=== PATIENT | female | born 1995 | race Caucasian/White ===

== ENCOUNTER 2021-07-20 14:40 | Emergency (ER) | payer SELFPAY ==
[2021-07-20 14:47] VITALS: BP 103/70; PULSE 79; TEMP 98.2; BMI 20.2
[2021-07-20] MEDS ORDERED: SODIUM CHLORIDE 0.9% 500 ML INFUS.BAG IV ONE (16:24)
[2021-07-20 17:41] LABS: BASO % 0.7 % (0-2.0); EOS % 2.9 % (0-4.5); HEMATOCRIT 36.4 % (32.4-45.2); HEMOGLOBIN 12.9 GM/dL (10.7-15.3); LYMPH % 25.1 % (8-40); MCH 32.5 pg (25.7-33.7); MCHC 35.3 g/dl (32.0-36.0); MEAN PLT VOLUME 8.7 fl (7.5-11.1); MONO % 7.5 % (3.8-10.2); NEUT % 63.8 % (42.8-82.8); PLATELET COUNT 222 10^3/uL (134-434); RBC 3.96 M/mm3 (3.60-5.2); RDW 12.7 % (11.6-15.6); WHITE BLOOD COUNT 10.6 K/mm3 (4.0-10.0)
[2021-07-20 17:43] LABS: HCG,QUALITATIVE URINE Positive
[2021-07-20 17:46] LABS: EPI CELLS 15 /uL (0-25.1); HYALINE CASTS 1 /uL (0-3.1); URINE APPEARANCE TURBID; URINE BACTERIA 284 /uL (0-1359); URINE BILIRUBIN NEGATIVE (NEGATIVE); URINE COLOR YELLOW; URINE GLUCOSE (UA) NEGATIVE (NEGATIVE); URINE KETONE NEGATIVE (NEGATIVE); URINE LEUK ESTERASE NEGATIVE (NEGATIVE); URINE NITRITE NEGATIVE (NEGATIVE); URINE PROTEIN TRACE (NEGATIVE); URINE RBC 14 /uL (0-23.9); URINE WBC 17 /uL (0-25.8)
[2021-07-20 18:31] LABS: CREATININE 0.7 mg/dL (0.55-1.3)
[2021-07-20 18:32] LABS: ALBUMIN 3.6 g/dl (3.4-5.0); CALCIUM 8.9 mg/dL (8.5-10.1); TOT PROT 7.1 g/dl (6.4-8.2)
[2021-07-20 18:33] LABS: BILIRUBIN,TOTAL 0.4 mg/dL (0.2-1)
== END 2021-07-20 20:37 | disposition home or self-care (01) ==
LOC: JER 14:40
DX: O20.8 Other hemorrhage in early pregnancy (principal)
CPT/HCPCS: 36415; 76775-TC; 76817-TC; 80053; 81003; 84702; 84703; 85025; 86850; 86900; 86901; 87086; 87186; 99284-25

== ENCOUNTER 2021-07-22 08:27 | Emergency (ER) | payer SELFPAY ==
[2021-07-22 08:34] VITALS: BP 103/68; PULSE 71; TEMP 98.3; BMI 21.9
== END 2021-07-22 11:49 | disposition home or self-care (01) ==
LOC: JERFT 08:27
DX: O03.9 Complete or unspecified spontaneous abortion without complication (principal); Z3A.00 Weeks of gestation of pregnancy not specified
CPT/HCPCS: 36415; 76817-TC; 84702; 99284-25

== ENCOUNTER 2021-11-01 15:35 | Emergency (ER) | payer OTHER ==
[2021-11-01 15:42] VITALS: BP 124/88; PULSE 72; TEMP 97.9; BMI 22.2
[2021-11-01 17:41] LABS: BASO % 0.5 % (0-2.0); EOS % 2.5 % (0-4.5); HEMATOCRIT 40.3 % (32.4-45.2); HEMOGLOBIN 13.6 GM/dL (10.7-15.3); LYMPH % 29.1 % (8-40); MCH 30.6 pg (25.7-33.7); MCHC 33.6 g/dl (32.0-36.0); MEAN PLT VOLUME 9.2 fl (7.5-11.1); MONO % 9.5 % (3.8-10.2); NEUT % 58.4 % (42.8-82.8); PLATELET COUNT 221 10^3/uL (134-434); RBC 4.43 M/mm3 (3.60-5.2); RDW 12.8 % (11.6-15.6); WHITE BLOOD COUNT 7.8 K/mm3 (4.0-10.0)
[2021-11-01 17:44] LABS: URINE APPEARANCE CLEAR; URINE BILIRUBIN NEGATIVE (NEGATIVE); URINE COLOR YELLOW; URINE GLUCOSE (UA) NEGATIVE (NEGATIVE); URINE KETONE NEGATIVE (NEGATIVE); URINE LEUK ESTERASE NEGATIVE (NEGATIVE); URINE NITRITE NEGATIVE (NEGATIVE); URINE PROTEIN NEGATIVE (NEGATIVE); URINE UROBILINOGEN 0.2 mg/dL (0.2-1.0)
[2021-11-01 17:47] LABS: HCG,QUALITATIVE URINE Negative
[2021-11-01 18:01] LABS: CHLORIDE 106 mmol/L (98-107); SODIUM 137 mmol/L (136-145)
[2021-11-01 18:02] LABS: CALCIUM 9.5 mg/dL (8.5-10.1)
[2021-11-01 18:03] LABS: ANION GAP 8 MMOL/L (8-16); CO2 23 mmol/L (21-32); GLUCOSE,RANDOM 92 mg/dL (74-106)
[2021-11-01 18:06] LABS: CREATININE 0.8 mg/dL (0.55-1.3)
== END 2021-11-01 20:40 | disposition home or self-care (01) ==
LOC: JER 15:35
DX: N83.02 Follicular cyst of left ovary (principal)
CPT/HCPCS: 36415; 76830-TC; 80048; 81003; 84702; 84703; 85025; 87086; 87491; 87591; 99284-25

== ENCOUNTER 2022-03-30 09:11 | Emergency (ER) | payer OTHER ==
[2022-03-30 09:18] VITALS: TEMP 98.4; BMI 25.0
[2022-03-30] MEDS ORDERED: SODIUM CHLORIDE 1,000 ML IV STA ×2 (09:52→11:47)
[2022-03-30] MEDS ORDERED: METOCLOPRAMIDE HCL INJECTION 10 MG/2 ML VIAL IVPUSH ONE (10:08)
[2022-03-30] MEDS ORDERED: METOCLOPRAMIDE HCL INJECTION 10 MG/2 ML VIAL ONE (10:09)
[2022-03-30 11:05] LABS: PH,URINE >= 9.0 (5.0-8.0); URINE APPEARANCE CLEAR; URINE BILIRUBIN NEGATIVE (NEGATIVE); URINE COLOR YELLOW; URINE GLUCOSE (UA) NEGATIVE (NEGATIVE); URINE KETONE NEGATIVE (NEGATIVE); URINE LEUK ESTERASE NEGATIVE (NEGATIVE); URINE NITRITE NEGATIVE (NEGATIVE); URINE PROTEIN TRACE (NEGATIVE); URINE UROBILINOGEN 0.2 mg/dL (0.2-1.0)
[2022-03-30 11:08] LABS: BASO % 0.1 % (0-2.0); EOS % 1.3 % (0-4.5); HEMATOCRIT 33.6 % (32.4-45.2); HEMOGLOBIN 11.6 GM/dL (10.7-15.3); LYMPH % 5.3 % (8-40); MCH 31.4 pg (25.7-33.7); MCHC 34.4 g/dl (32.0-36.0); MEAN CELL VOLUME 91.3 fl (80-96); MEAN PLT VOLUME 9.7 fl (7.5-11.1); MONO % 3.9 % (3.8-10.2); NEUT % 89.4 % (42.8-82.8); PLATELET COUNT 220 10^3/uL (134-434); RBC 3.68 M/mm3 (3.60-5.2); RDW 13.3 % (11.6-15.6); WHITE BLOOD COUNT 12.5 K/mm3 (4.0-10.0)
[2022-03-30 11:40] LABS: BLOOD UREA NITROGEN 8.9 mg/dL (7-18)
[2022-03-30 11:41] LABS: CALCIUM 8.5 mg/dL (8.5-10.1)
[2022-03-30 11:44] LABS: CREATININE 0.5 mg/dL (0.55-1.3)
[2022-03-30 11:46] LABS: BILIRUBIN,TOTAL 0.5 mg/dL (0.2-1); TOT PROT 6.3 g/dl (6.4-8.2)
[2022-03-30] MEDS ORDERED: ACETAMINOPHEN 1000 MG/100 ML BAG IVPB ONE (11:47)
[2022-03-30] MEDS ORDERED: ACETAMINOPHEN INJECTION 100 ML IVPB ONE (11:52)
[2022-03-30 14:36] VITALS: BP 100/68; PULSE 72; RESP 19
== END 2022-03-30 14:36 | disposition home or self-care (01) ==
LOC: JER 09:11
PROC: 3E033GC Introduction of Other Therapeutic Substance into Peripheral Vein, Percutaneous Approach (ICD-10-PCS; principal; 2022-03-30)
DX: A08.4 Viral intestinal infection, unspecified (principal)
CPT/HCPCS: 36415; 76705-TC; 80053; 81003; 83690; 84702; 84703; 85025; 87086; 99284-25

== ENCOUNTER 2022-05-24 11:53 | Emergency (ER) | payer OTHER ==
[2022-05-24 12:10] VITALS: BMI 28.3
[2022-05-24] MEDS ORDERED: ACETAMINOPHEN 325 MG TABLET (FP) PO ONE (12:59)
[2022-05-24] MEDS ORDERED: ACETAMINOPHEN 325 MG TABLET (FP) ONE (13:03)
[2022-05-24 14:43] VITALS: RESP 20; TEMP 97.8
[2022-05-24 16:33] VITALS: BP 106/60
[2022-05-24 16:34] VITALS: PULSE 73
== END 2022-05-24 17:15 | disposition home or self-care (01) ==
LOC: JER 11:53
DX: S09.90XA Unspecified injury of head, initial encounter (principal); W19.XXXA Unspecified fall, initial encounter; Y92.9 Unspecified place or not applicable
CPT/HCPCS: 99283-25

== ENCOUNTER 2022-08-26 08:35 | Inpatient (IN) | payer OTHER ==
[2022-08-26] MEDS ORDERED: DINOPROSTONE 10 MG VAGINAL SUPPOSITORY VG ONE (09:52)
[2022-08-26 09:57] VITALS: BMI 27.9
[2022-08-26] MEDS: ELECTROLYTE-148 SOLN 1,000 ML IV SCH ×2 (10:00→18:02)
[2022-08-26 10:24] LABS: BASO % 0.5 % (0-2.0); EOS % 0.7 % (0-4.5); HEMATOCRIT 35.8 % (32.4-45.2); HEMOGLOBIN 11.9 GM/dL (10.7-15.3); LYMPH % 14.4 % (8-40); MCH 30.4 pg (25.7-33.7); MCHC 33.1 g/dl (32.0-36.0); MEAN CELL VOLUME 91.8 fl (80-96); MEAN PLT VOLUME 10.4 fl (7.5-11.1); NEUT % 79.4 % (42.8-82.8); PLATELET COUNT 178 10^3/uL (134-434); RDW 14.3 % (11.6-15.6); WHITE BLOOD COUNT 9.8 K/mm3 (4.0-10.0)
[2022-08-26 10:30] LABS: INR 0.96 (0.83-1.09)
[2022-08-26 10:32] LABS: ACTIVATED PTT 32.8 SECONDS (25.2-36.5)
[2022-08-26 10:42] LABS: CALCIUM 8.5 mg/dL (8.5-10.1)
[2022-08-26 10:43] LABS: BLOOD UREA NITROGEN 12.4 mg/dL (7-18)
[2022-08-26 10:46] LABS: CREATININE 0.7 mg/dL (0.55-1.3)
[2022-08-26 12:44] LABS: HIV INTERPRETATION NEGATIVE (NEGATIVE)
[2022-08-26] MEDS ORDERED: PROMETHAZINE HCL 25 MG/1 ML VIAL IVPB ONE (22:47)
[2022-08-26] MEDS ORDERED: BUTORPHANOL TARTRATE 1 MG/ML VIAL IVPB ONE (22:47)
[2022-08-26] MEDS ORDERED: OXYTOCIN 30 UNITS in 0.9% NS 30 UNIT/500 ML INFUS.BAG IVPB SCH (23:00)
[2022-08-27] MEDS ORDERED: OXYTOCIN 30 UNITS in 0.9% NS 30 UNIT/500 ML INFUS.BAG IVPB ONE (00:26)
[2022-08-27] MEDS: ELECTROLYTE-148 SOLN 1,000 ML IV SCH ×2 (02:00→23:09)
[2022-08-27] MEDS ORDERED: PROMETHAZINE HCL 25 MG/1 ML VIAL ONE (05:18)
[2022-08-27] MEDS ORDERED: BUTORPHANOL TARTRATE 2 MG/ML VIAL ONE (05:18)
[2022-08-27] MEDS ORDERED: OXYTOCIN 20 UNITS in 0.9% NS 20 UNIT/1,000 ML INFUS.BAG IV ONE (08:48)
[2022-08-27] MEDS ORDERED: BENZOCAINE 20% 57 GM BOTTLE TP PRN (09:50)
[2022-08-27] MEDS ORDERED: ACETAMINOPHEN 325 MG TABLET (FP) PO PRN (09:50)
[2022-08-27] MEDS ORDERED: IBUPROFEN 600 MG TABLET (FP) PO PRN (09:50)
[2022-08-27] MEDS ORDERED: WITCH HAZEL 50% (TUCKS) 40 PAD/JAR PAD TP PRN (09:50)
[2022-08-27] MEDS ORDERED: METHYLERGONOVINE MALEATE 0.2 MG/1 ML AMP IM PRN (09:50)
[2022-08-27] MEDS ORDERED: BENZOCAINE 28 GM HEMORRHOIDAL OINTMENT TP PRN (09:50)
[2022-08-27] MEDS ORDERED: BISACODYL 10 MG SUPP.RECT RC PRN (09:50)
[2022-08-27] MEDS ORDERED: OXYTOCIN 20 UNITS in 0.9% NS 20 UNIT/1,000 ML INFUS.BAG IV SCH (10:00)
[2022-08-27] MEDS: PRENATAL VITAMINS W/ FOLIC ACID TABLET (FP) PO SCH (10:43)
[2022-08-27 22:50] VITALS: RESP 18
[2022-08-28 08:20] LABS: BASO % 0.4 % (0-2.0); EOS % 0.6 % (0-4.5); HEMATOCRIT 25.8 % (32.4-45.2); HEMOGLOBIN 8.4 GM/dL (10.7-15.3); LYMPH % 16.9 % (8-40); MCH 30.4 pg (25.7-33.7); MCHC 32.7 g/dl (32.0-36.0); MEAN CELL VOLUME 93.2 fl (80-96); MEAN PLT VOLUME 10.6 fl (7.5-11.1); MONO % 6.6 % (3.8-10.2); NEUT % 75.5 % (42.8-82.8); PLATELET COUNT 139 10^3/uL (134-434); RBC 2.77 M/mm3 (3.60-5.2); RDW 14.5 % (11.6-15.6)
[2022-08-28] MEDS: PRENATAL VITAMINS W/ FOLIC ACID TABLET (FP) PO SCH (10:08)
[2022-08-28 11:07] LABS: ANISOCYTOSIS 0; HELMET CELLS 0; HOWELL-JOLLY BODIES 0; MACROCYTOSIS 0; OVALOCYTE 0; ROULEAU 0; SICKELED CELLS 0; TARGET CELLS 0; TEAR DROP CELLS 0; TOXIC GRANULATION 0
[2022-08-28] MEDS: FERROUS SO4 325 MG TABLET (FP) PO SCH ×2 (11:34→18:14)
[2022-08-28] MEDS ORDERED: SENNOSIDES/DOCUSATE COMBO (SENNA PLUS) TABLET (UD) PO PRN (22:00)
[2022-08-29] MEDS: FERROUS SO4 325 MG TABLET (FP) PO SCH (08:52)
[2022-08-29] MEDS: PRENATAL VITAMINS W/ FOLIC ACID TABLET (FP) PO SCH (10:24)
[2022-08-29 10:35] VITALS: BP 106/67; PULSE 86; TEMP 98.1
[2022-08-31 12:45] LABS: POC NITRAZINE NEG
== END 2022-08-29 13:00 | disposition home or self-care (01) | DRG 560 ==
LOC: JLDR 08:35 → J3W 08-27 14:25
PROVIDERS: ADMIT Obstetrics & Gynecology; ATTEND Obstetrics & Gynecology
PROC: 3E0P7VZ Introduction of Hormone into Female Reproductive, Via Natural or Artificial Opening (ICD-10-PCS; 2022-08-26)
PROC: 10907ZC Drainage of Amniotic Fluid, Therapeutic from Products of Conception, Via Natural or Artificial Opening (ICD-10-PCS; 2022-08-26)
PROC: 10E0XZZ Delivery of Products of Conception, External Approach (ICD-10-PCS; principal; 2022-08-27)
PROC: 0W8NXZZ Division of Female Perineum, External Approach (ICD-10-PCS; 2022-08-27)
PROC: 0HQ9XZZ Repair Perineum Skin, External Approach (ICD-10-PCS; 2022-08-27)
DX: O48.0 Post-term pregnancy (principal); O70.0 First degree perineal laceration during delivery; O69.89X0 Labor and delivery complicated by other cord complications, not applicable or unspecified; Z3A.40 40 weeks gestation of pregnancy; Z37.0 Single live birth
CPT/HCPCS: 36415; 59409; 80048; 83986-QW; 85025; 85610; 85730; 86780; 86850; 86900; 86901; 87389; C9803-CS; U0003; U0005

== ENCOUNTER 2023-05-02 16:59 | Emergency (ER) | payer OTHER ==
[2023-05-02 17:13] VITALS: BP 113/79; PULSE 102; RESP 20; TEMP 98.3; BMI 22.3
== END 2023-05-02 19:02 | disposition left against medical advice (07) ==
LOC: JERFT 16:59
DX: N60.01 Solitary cyst of right breast (principal)
CPT/HCPCS: 99281-25

== ENCOUNTER 2024-10-22 18:37 | Observation (INO) | payer OTHER ==
[2024-10-22] MEDS: LACTATED RINGERS SOLUTION 500 ML IV SCH (19:15)
[2024-10-22] MEDS: LACTATED RINGERS SOLUTION 1,000 ML IV SCH (20:15)
[2024-10-22] MEDS ORDERED: TERBUTALINE SULFATE 1 MG/1 ML VIAL SQ ONE (21:58)
[2024-10-22] MEDS: TERBUTALINE SULFATE 1 MG/1 ML VIAL SQ SCH (22:00)
[2024-10-22] MEDS: BETAMET ACET/BETAMET NA PH 30 MG/5 ML VIAL IM SCH (22:20)
[2024-10-22] MEDS ORDERED: BETAMET ACET/BETAMET NA PH 30 MG/5 ML VIAL ONE (22:28)
[2024-10-22 23:22] LABS: EPI CELLS >36 /uL (0-25.1); HYALINE CASTS 1 /uL (0-3.1); URINE APPEARANCE CLEAR; URINE BACTERIA 554 /uL (0-1359); URINE BILIRUBIN NEGATIVE (NEGATIVE); URINE COLOR YELLOW; URINE GLUCOSE (UA) NEGATIVE (NEGATIVE); URINE KETONE NEGATIVE (NEGATIVE); URINE LEUK ESTERASE TRACE (NEGATIVE); URINE NITRITE NEGATIVE (NEGATIVE); URINE PROTEIN NEGATIVE (NEGATIVE); URINE RBC 13 /uL (0-23.9); URINE UROBILINOGEN 0.2 mg/dL (0.2-1.0); URINE WBC 37 /uL (0-25.8)
[2024-10-22] MEDS: CEFAZOLIN 1 GM in DEXTROSE 5%-WATER - 50 ML IVPB ONE (23:40)
[2024-10-22] MEDS ORDERED: ceFAZolin SODIUM 1 GM VIAL ONE (23:43)
[2024-10-23] MEDS: LACTATED RINGERS SOLUTION 1,000 ML/1,000 ML INFUS.BAG IV ONE (05:30)
[2024-10-23] MEDS: CEFAZOLIN 1 GM in DEXTROSE 5%-WATER - 50 ML IVPB SCH (05:40)
[2024-10-23] MEDS ORDERED: ceFAZolin SODIUM 1 GM VIAL ONE ×2 (05:53→11:54)
[2024-10-23] MEDS: FLUCONAZOLE 150 MG TABLET PO ONE (07:15)
[2024-10-23 12:38] VITALS: RESP 18
[2024-10-23 12:54] VITALS: BP 99/58; PULSE 92; TEMP 98.4
== END 2024-10-23 13:10 | disposition home or self-care (01) ==
LOC: JDEL 18:37 → JLDR 10-23 03:00
PROVIDERS: ADMIT Obstetrics & Gynecology Obstetrics; ATTEND Obstetrics & Gynecology Obstetrics
PROC: 3E0233Z Introduction of Anti-inflammatory into Muscle, Percutaneous Approach (ICD-10-PCS; principal; 2024-10-23)
PROC: 3E03329 Introduction of Other Anti-infective into Peripheral Vein, Percutaneous Approach (ICD-10-PCS; 2024-10-23)
PROC: 3E0337Z Introduction of Electrolytic and Water Balance Substance into Peripheral Vein, Percutaneous Approach (ICD-10-PCS; 2024-10-23)
PROC: 3E023GC Introduction of Other Therapeutic Substance into Muscle, Percutaneous Approach (ICD-10-PCS; 2024-10-23)
DX: O47.9 False labor, unspecified (principal); Z3A.32 32 weeks gestation of pregnancy; N17.9 Acute kidney failure, unspecified; B37.9 Candidiasis, unspecified
CPT/HCPCS: 76815-TC; 76830-TC; 81003; 87070; 87077; 87086; 87205; 96361; 96365; 96366; 96372; G0378

== ENCOUNTER 2024-12-09 21:05 | Inpatient (IN) | payer OTHER ==
[2024-12-09] MEDS: LACTATED RINGERS SOLUTION 1,000 ML/1,000 ML INFUS.BAG IV SCH (22:00)
[2024-12-09 22:23] LABS: ABSOLUTE IMMATURE GRANULOCYTES 0.07 x10^3/uL (0.0-0.031); BASOPHILS # 0.03 x10^3/uL (0.01-0.08); EOSINOPHIL % 0.2 % (0.7-5.8); EOSINOPHILS # 0.02 x10^3/uL (0.04-0.36); HEMATOCRIT 35.7 % (34.1-44.9); HEMOGLOBIN 12.2 g/dL (11.2-15.7); MCHC 34.2 g/dl (32.2-35.5); MEAN CELL VOLUME 90.4 fl (79.4-94.8); MEAN PLT VOLUME 12.6 fl (9.4-12.3); MONOCYTE # 0.58 x10^3/uL (0.24-0.86); MONOCYTE % 5.5 % (4.7-12.5); PLATELET COUNT 162 x10^3/uL (182-369); RDW 14.3 % (12.1-16.5)
[2024-12-09 22:30] VITALS: BMI 27.1
[2024-12-09 22:31] LABS: COCAINE, UR NEGATIVE (NEGATIVE); METHADONE, UR NEGATIVE (NEGATIVE); PHENCYCLIDINE,URINE NEGATIVE (NEGATIVE); URINE AMPHETAMINES NEGATIVE (NEGATIVE); URINE BARBITURATES NEGATIVE (NEGATIVE); URINE BENZODIAZEPINES NEGATIVE (NEGATIVE)
[2024-12-09 22:35] LABS: INR 0.98 (0.83-1.09); PROTHROMBIN TIME (PATIENT) 10.7 SEC (9.7-13.0)
[2024-12-09 22:38] LABS: ACTIVATED PTT 31.5 SECONDS (25.2-36.5)
[2024-12-09 22:40] LABS: OPIATES, URI NEGATIVE (NEGATIVE)
[2024-12-09 22:56] LABS: POTASSIUM 3.8 mmol/L (3.5-5.1)
[2024-12-09 22:57] LABS: CALCIUM 8.3 mg/dL (8.5-10.1)
[2024-12-09 22:58] LABS: BLOOD UREA NITROGEN 10.5 mg/dL (7-18)
[2024-12-09 23:01] LABS: CREATININE 0.7 mg/dL (0.55-1.3)
[2024-12-09] MEDS ORDERED: OXYTOCIN 20 UNITS in 0.9% NS 20 UNIT/1,000 ML INFUS.BAG IV ONE (23:09)
[2024-12-09 23:15] LABS: SYPHILIS W/ RPR CONF NON-REACTIVE (NONREACTIVE)
[2024-12-09] MEDS: OXYTOCIN 20 UNITS in 0.9% NS 20 UNIT/1,000 ML INFUS.BAG IV SCH (23:37)
[2024-12-09] MEDS ORDERED: MISOPROSTOL 200 MCG TABLET ONE (23:38)
[2024-12-09] MEDS: MISOPROSTOL 100 MCG TABLET PV ONE (23:40)
[2024-12-09] MEDS: METHYLERGONOVINE MALEATE 0.2 MG/1 ML AMP IM PRN (23:41)
[2024-12-09 23:44] LABS: HIV INTERPRETATION NEGATIVE (NEGATIVE)
[2024-12-09] MEDS ORDERED: BENZOCAINE 28 GM HEMORRHOIDAL OINTMENT TP PRN (23:47)
[2024-12-09] MEDS ORDERED: WITCH HAZEL 50% (TUCKS) 40 PAD/JAR PAD TP PRN (23:47)
[2024-12-09] MEDS ORDERED: BISACODYL 10 MG SUPP.RECT RC PRN (23:47)
[2024-12-09] MEDS ORDERED: BENZOCAINE 20% 57 GM BOTTLE TP PRN (23:47)
[2024-12-10] MEDS ORDERED: IBUPROFEN 600 MG TABLET (FP) PO ONE (00:41)
[2024-12-10] MEDS: IBUPROFEN 600 MG TABLET (FP) PO PRN (00:43)
[2024-12-10 06:38] LABS: ABSOLUTE IMMATURE GRANULOCYTES 0.11 x10^3/uL (0.0-0.031); BASOPHILS # 0.06 x10^3/uL (0.01-0.08); EOSINOPHIL % 0.1 % (0.7-5.8); EOSINOPHILS # 0.02 x10^3/uL (0.04-0.36); HEMATOCRIT 27.7 % (34.1-44.9); HEMOGLOBIN 9.3 g/dL (11.2-15.7); MCHC 33.6 g/dl (32.2-35.5); MEAN CELL VOLUME 92.3 fl (79.4-94.8); MEAN PLT VOLUME 12.6 fl (9.4-12.3); MONOCYTE # 1.14 x10^3/uL (0.24-0.86); MONOCYTE % 6.1 % (4.7-12.5); PLATELET COUNT 131 x10^3/uL (182-369); RDW 14.3 % (12.1-16.5)
[2024-12-10] MEDS: FERROUS SO4 325 MG TABLET (FP) PO SCH (10:36)
[2024-12-10] MEDS: ACETAMINOPHEN 325 MG TABLET (FP) PO PRN (12:26)
[2024-12-10 21:22] VITALS: PULSE 80
[2024-12-11 11:08] VITALS: BP 109/66; RESP 17; TEMP 97.9
== END 2024-12-11 15:45 | disposition home or self-care (01) | DRG 560 ==
LOC: JDEL 21:05 → JLDR 21:50 → J3W 12-10 01:46
PROVIDERS: ADMIT Student in an Organized Health Care Education/Training Program; ATTEND Student in an Organized Health Care Education/Training Program
PROC: 10E0XZZ Delivery of Products of Conception, External Approach (ICD-10-PCS; principal; 2024-12-09)
DX: O99.02 Anemia complicating childbirth (principal); D64.9 Anemia, unspecified; Z3A.39 39 weeks gestation of pregnancy; Z37.0 Single live birth
CPT/HCPCS: 36415; 59409; 80048; 80307; 85025; 85610; 85730; 86780; 86850; 86900; 86901; 87389